=== PATIENT | male | born 1985 | race Two or more races ===

== ENCOUNTER 2021-04-06 11:13 | Inpatient (IN) | payer OTHER ==
[2021-04-06 12:04] VITALS: BMI 22.8
[2021-04-06] MEDS ORDERED: BISMUTH SUBSALICYLATE 262 MG/15 ML BTL PO PRN (12:21)
[2021-04-06] MEDS ORDERED: MAGNESIUM HYDROX 2400MG/30ML ORAL SUSPENSION 30 ML CUP PO PRN (12:21)
[2021-04-06] MEDS ORDERED: MAG HYDROX/AL HYDROX/SIMETH 30 ML UNIT-DOSE CUP PO PRN (12:21)
[2021-04-06] MEDS ORDERED: ONDANSETRON *ODT* 4 MG TABLET SL PRN (12:21)
[2021-04-06] MEDS ORDERED: MAGNESIUM CITRATE 300 ML BOTTLE PO PRN (12:21)
[2021-04-06] MEDS ORDERED: ACETAMINOPHEN 325 MG TABLET (FP) PO PRN ×2 (12:21)
[2021-04-06] MEDS ORDERED: MENTHOL/PHENOL 1 EACH UD MM PRN (12:21)
[2021-04-06] MEDS ORDERED: methaDONE HCL 10 MG TABLET (FOR DETOX USE ONLY) PO ONE (12:24)
[2021-04-06] MEDS ORDERED: diazePAM 5 MG TABLET ONE (13:03)
[2021-04-06] MEDS ORDERED: methaDONE HCL 10 MG TABLET (FOR DETOX USE ONLY) ONE (13:04)
[2021-04-06] MEDS ORDERED: METHOCARBAMOL 500 MG TABLET ONE (13:04)
[2021-04-06] MEDS: diazePAM 5 MG TABLET PO PRN (13:10)
[2021-04-06] MEDS: METHOCARBAMOL 500 MG TABLET PO PRN ×2 (13:10→22:41)
[2021-04-06] MEDS ORDERED: hydrOXYzine PAMOATE 25 MG CAPSULE (FP) PO SCH (14:00)
[2021-04-06] MEDS: diazePAM 5 MG TABLET PO SCH ×3 (14:24→22:39)
[2021-04-06] MEDS: NICOTINE 21 MG/24 HOURS TOPICAL PATCH TD SCH (14:28)
[2021-04-06] MEDS: PRENATAL VITAMINS W/ FOLIC ACID TABLET (FP) PO SCH (14:28)
[2021-04-06 17:27] LABS: HEMATOCRIT 35.5 % (35.4-49); HEMOGLOBIN 11.8 GM/dL (11.7-16.9); MCH 27.8 pg (25.7-33.7); MCHC 33.3 g/dl (32.0-35.9); MEAN CELL VOLUME 83.6 fl (80-96); MEAN PLT VOLUME 9.1 fl (7.5-11.1); PLATELET COUNT 165 10^3/uL (134-434); RBC 4.25 M/mm3 (4.00-5.60); RDW 15.1 % (11.9-15.9); WHITE BLOOD COUNT 7.5 K/mm3 (4.0-10.0)
[2021-04-06 17:34] LABS: ALBUMIN 3.4 g/dl (3.4-5.0); BLOOD UREA NITROGEN 8.4 mg/dL (7-18); CALCIUM 8.9 mg/dL (8.5-10.1)
[2021-04-06 17:36] LABS: BILIRUBIN,TOTAL 0.4 mg/dL (0.2-1); TOT PROT 7.2 g/dl (6.4-8.2)
[2021-04-06 17:38] LABS: CREATININE 0.7 mg/dL (0.55-1.3)
[2021-04-06 18:23] LABS: HIV INTERPRETATION NEGATIVE (NEGATIVE)
[2021-04-06] MEDS: MELATONIN 5 MG TABLETS PO SCH (22:39)
[2021-04-06] MEDS: THIAMINE HCL 100 MG TABLET (FP) PO SCH (22:39)
[2021-04-06] MEDS: hydrOXYzine PAMOATE 25 MG CAPSULE (FP) PO PRN (22:40)
[2021-04-07] MEDS: diazePAM 5 MG TABLET PO SCH ×4 (07:48→22:55)
[2021-04-07] MEDS ORDERED: methaDONE HCL 10 MG TABLET (FOR DETOX USE ONLY) ONE (09:18)
[2021-04-07] MEDS: PRENATAL VITAMINS W/ FOLIC ACID TABLET (FP) PO SCH (10:38)
[2021-04-07] MEDS: NICOTINE 21 MG/24 HOURS TOPICAL PATCH TD SCH (10:38)
[2021-04-07] MEDS: METHOCARBAMOL 500 MG TABLET PO PRN (10:39)
[2021-04-07] MEDS: hydrOXYzine PAMOATE 25 MG CAPSULE (FP) PO PRN ×2 (18:12→22:56)
[2021-04-07] MEDS: MELATONIN 5 MG TABLETS PO SCH (22:54)
[2021-04-07] MEDS: THIAMINE HCL 100 MG TABLET (FP) PO SCH (22:54)
[2021-04-07] MEDS: cloNIDine HCL 0.1 MG TABLET PO PRN (22:54)
[2021-04-08] MEDS: diazePAM 5 MG TABLET PO SCH ×3 (06:01→22:27)
[2021-04-08] MEDS ORDERED: methaDONE HCL 10 MG TABLET (FOR DETOX USE ONLY) PO ONE (10:00)
[2021-04-08] MEDS: IBUPROFEN 400 MG TABLET (FP) PO PRN ×2 (10:20→17:57)
[2021-04-08] MEDS: PRENATAL VITAMINS W/ FOLIC ACID TABLET (FP) PO SCH (10:22)
[2021-04-08] MEDS: NICOTINE 21 MG/24 HOURS TOPICAL PATCH TD SCH (10:22)
[2021-04-08] MEDS: METHOCARBAMOL 500 MG TABLET PO PRN ×2 (14:54→22:28)
[2021-04-08] MEDS: cloNIDine HCL 0.1 MG TABLET PO PRN ×2 (14:54→22:29)
[2021-04-08] MEDS: diazePAM 5 MG TABLET PO PRN (17:57)
[2021-04-08] MEDS: MELATONIN 5 MG TABLETS PO SCH (22:27)
[2021-04-08] MEDS: hydrOXYzine PAMOATE 25 MG CAPSULE (FP) PO PRN (22:27)
[2021-04-08] MEDS: THIAMINE HCL 100 MG TABLET (FP) PO SCH (22:28)
[2021-04-09] MEDS ORDERED: diazePAM 5 MG TABLET PO SCH (06:00)
[2021-04-09] MEDS: METHOCARBAMOL 500 MG TABLET PO PRN (06:32)
[2021-04-09] MEDS: hydrOXYzine PAMOATE 25 MG CAPSULE (FP) PO PRN (06:34)
[2021-04-09 09:10] VITALS: BP 126/62; PULSE 74; TEMP 98
[2021-04-09] MEDS ORDERED: methaDONE HCL 10 MG TABLET (FOR DETOX USE ONLY) ONE (09:27)
[2021-04-09] MEDS: NICOTINE 21 MG/24 HOURS TOPICAL PATCH TD SCH (09:28)
[2021-04-09] MEDS: PRENATAL VITAMINS W/ FOLIC ACID TABLET (FP) PO SCH (09:28)
[2021-04-09] MEDS: diazePAM 5 MG TABLET PO PRN (09:30)
[2021-04-09 10:32] LABS: SGOT/AST 31 U/L (15-37); SGPT/ALT 89 U/L (13-61)
[2021-04-10] MEDS ORDERED: diazePAM 5 MG TABLET PO ONE (06:00)
[2021-04-10] MEDS ORDERED: methaDONE HCL 10 MG TABLET (FOR DETOX USE ONLY) PO ONE (10:00)
== END 2021-04-09 10:52 | disposition left against medical advice (07) | DRG 770 ==
LOC: YASAS 11:13 → Y3N 12:36
PROVIDERS: ADMIT Allergy & Immunology; ATTEND Allergy & Immunology
PROC: HZ2ZZZZ Detoxification Services for Substance Abuse Treatment (ICD-10-PCS; principal; 2021-04-06)
DX: F11.23 Opioid dependence with withdrawal (principal); F10.230 Alcohol dependence with withdrawal, uncomplicated; F14.20 Cocaine dependence, uncomplicated; F17.220 Nicotine dependence, chewing tobacco, uncomplicated; F19.24 Other psychoactive substance dependence with psychoactive substance-induced mood disorder; F90.9 Attention-deficit hyperactivity disorder, unspecified type; Z56.0 Unemployment, unspecified; Z59.0 Homelessness
CPT/HCPCS: 36415; 80053; 84450; 84460; 85027; 86780; 87389; C9803; J0735; U0003; U0005

== ENCOUNTER 2022-05-05 19:52 | Inpatient (IN) | payer OTHER ==
[2022-05-06] MEDS ORDERED: guaiFENesin 200 MG/10 ML 10 ML UNIT-DOSE CUPS PO PRN (00:40)
[2022-05-06] MEDS ORDERED: ACETAMINOPHEN 325 MG TABLET (FP) PO PRN ×2 (00:40)
[2022-05-06] MEDS ORDERED: IBUPROFEN 400 MG TABLET (FP) PO PRN (00:40)
[2022-05-06] MEDS ORDERED: MAGNESIUM HYDROX 2400MG/30ML ORAL SUSPENSION 30 ML CUP PO PRN (00:40)
[2022-05-06] MEDS ORDERED: MAGNESIUM CITRATE 300 ML BOTTLE PO PRN (00:40)
[2022-05-06] MEDS ORDERED: PROCHLORPERAZINE MALEATE 5 MG TABLET PO PRN (00:40)
[2022-05-06] MEDS ORDERED: DICYCLOMINE HCL 10 MG CAPSULE PO PRN (00:40)
[2022-05-06] MEDS ORDERED: BISMUTH SUBSALICYLATE 524 MG/30 ML PO PRN (00:40)
[2022-05-06] MEDS ORDERED: MAG HYDROX/AL HYDROX/SIMETH 30 ML UNIT-DOSE CUP PO PRN (00:40)
[2022-05-06] MEDS ORDERED: P-EPHED 60MG/TRIPROLIDI 2.5MG TABLET PO PRN (00:40)
[2022-05-06] MEDS ORDERED: BENZOCAINE/MENTHOL (CHLORASEPTIC ) LOZENGE MM PRN (00:40)
[2022-05-06] MEDS ORDERED: LOPERAMIDE HCL 2 MG CAPSULE PO PRN (00:40)
[2022-05-06] MEDS ORDERED: NICOTINE POLACRILEX 2 MG GUM BUC PRN (00:40)
[2022-05-06 01:12] VITALS: BMI 28.0
[2022-05-06] MEDS: CEPHALEXIN MONOHYDRATE 500 MG CAPSULE (UD) PO SCH ×3 (07:30→17:53)
[2022-05-06] MEDS: PRENATAL VITAMINS W/ FOLIC ACID TABLET (FP) PO SCH (12:35)
[2022-05-06] MEDS: hydrOXYzine PAMOATE 25 MG CAPSULE (FP) PO PRN (15:11)
[2022-05-06] MEDS: METHOCARBAMOL 500 MG TABLET PO PRN (15:11)
[2022-05-07] MEDS: THIAMINE HCL 100 MG TABLET (FP) PO SCH ×2 (00:48→22:43)
[2022-05-07] MEDS: CEPHALEXIN MONOHYDRATE 500 MG CAPSULE (UD) PO SCH ×4 (01:17→18:09)
[2022-05-07] MEDS: PRENATAL VITAMINS W/ FOLIC ACID TABLET (FP) PO SCH (10:38)
[2022-05-07 10:53] LABS: HEMATOCRIT 34.4 % (35.4-49); HEMOGLOBIN 11.5 GM/dL (11.7-16.9); MCH 28.8 pg (25.7-33.7); MCHC 33.4 g/dl (32.0-35.9); MEAN CELL VOLUME 86.3 fl (80-96); MEAN PLT VOLUME 10.5 fl (7.5-11.1); PLATELET COUNT 131 10^3/uL (134-434); RBC 3.99 M/mm3 (4.00-5.60); RDW 14.3 % (11.9-15.9); WHITE BLOOD COUNT 9.3 K/mm3 (4.0-10.0)
[2022-05-07 11:06] LABS: ALBUMIN 2.8 g/dl (3.4-5.0); CALCIUM 8.7 mg/dL (8.5-10.1)
[2022-05-07 11:09] LABS: CREATININE 0.7 mg/dL (0.55-1.3)
[2022-05-07 11:10] LABS: TOT PROT 6.2 g/dl (6.4-8.2)
[2022-05-07 11:11] LABS: BILIRUBIN,TOTAL 0.3 mg/dL (0.2-1)
[2022-05-07] MEDS ORDERED: cloNIDine HCL 0.1 MG TABLET PO PRN (17:45)
[2022-05-07] MEDS ORDERED: diazePAM 5 MG TABLET PO PRN (17:45)
[2022-05-07] MEDS: diazePAM 5 MG TABLET PO SCH ×2 (18:08→22:43)
[2022-05-07] MEDS ORDERED: methaDONE HCL 10 MG TABLET (FOR DETOX USE ONLY) PO ONE (18:30)
[2022-05-07] MEDS: MELATONIN 5 MG TABLETS PO PRN (22:43)
[2022-05-08] MEDS: CEPHALEXIN MONOHYDRATE 500 MG CAPSULE (UD) PO SCH ×4 (01:04→17:58)
[2022-05-08] MEDS: diazePAM 5 MG TABLET PO SCH ×4 (06:16→22:41)
[2022-05-08] MEDS: METHOCARBAMOL 500 MG TABLET PO PRN (10:55)
[2022-05-08] MEDS: hydrOXYzine PAMOATE 25 MG CAPSULE (FP) PO PRN ×2 (10:55→22:41)
[2022-05-08] MEDS: PRENATAL VITAMINS W/ FOLIC ACID TABLET (FP) PO SCH (10:58)
[2022-05-08] MEDS: MELATONIN 5 MG TABLETS PO PRN (22:41)
[2022-05-08] MEDS: THIAMINE HCL 100 MG TABLET (FP) PO SCH (22:41)
[2022-05-09] MEDS: diazePAM 5 MG TABLET PO SCH ×3 (05:24→22:07)
[2022-05-09] MEDS: IBUPROFEN 600 MG TABLET (FP) PO PRN (07:07)
[2022-05-09] MEDS: METHOCARBAMOL 500 MG TABLET PO PRN ×2 (07:08→22:06)
[2022-05-09] MEDS ORDERED: methaDONE HCL 10 MG TABLET (FOR DETOX USE ONLY) PO ONE (10:00)
[2022-05-09] MEDS: PRENATAL VITAMINS W/ FOLIC ACID TABLET (FP) PO SCH (10:40)
[2022-05-09] MEDS: hydrOXYzine PAMOATE 25 MG CAPSULE (FP) PO PRN ×2 (18:21→22:06)
[2022-05-09] MEDS: MELATONIN 5 MG TABLETS PO PRN (22:06)
[2022-05-09] MEDS: THIAMINE HCL 100 MG TABLET (FP) PO SCH (22:06)
[2022-05-10] MEDS: diazePAM 5 MG TABLET PO SCH ×2 (06:40→17:55)
[2022-05-10] MEDS: METHOCARBAMOL 500 MG TABLET PO PRN ×2 (10:33→22:26)
[2022-05-10] MEDS: hydrOXYzine PAMOATE 25 MG CAPSULE (FP) PO PRN ×2 (10:34→22:26)
[2022-05-10] MEDS: PRENATAL VITAMINS W/ FOLIC ACID TABLET (FP) PO SCH (10:34)
[2022-05-10] MEDS: MELATONIN 5 MG TABLETS PO PRN (22:24)
[2022-05-10] MEDS: THIAMINE HCL 100 MG TABLET (FP) PO SCH (22:24)
[2022-05-11] MEDS ORDERED: MELATONIN 5 MG TABLETS PO ONE (00:33)
[2022-05-11] MEDS ORDERED: diazePAM 5 MG TABLET PO ONE (06:00)
[2022-05-11] MEDS: hydrOXYzine PAMOATE 25 MG CAPSULE (FP) PO PRN ×2 (06:50→22:06)
[2022-05-11] MEDS ORDERED: methaDONE HCL 10 MG TABLET (FOR DETOX USE ONLY) PO ONE (10:00)
[2022-05-11] MEDS: PRENATAL VITAMINS W/ FOLIC ACID TABLET (FP) PO SCH (10:27)
[2022-05-11] MEDS: IBUPROFEN 600 MG TABLET (FP) PO PRN (13:02)
[2022-05-11 18:01] VITALS: RESP 18
[2022-05-11] MEDS ORDERED: SUVOREXANT 15 MG TABLET PO PRN (22:00)
[2022-05-11] MEDS ORDERED: SUVOREXANT 10 MG TABLET PO PRN (22:00)
[2022-05-11] MEDS: THIAMINE HCL 100 MG TABLET (FP) PO SCH (22:06)
[2022-05-11] MEDS: METHOCARBAMOL 500 MG TABLET PO PRN (22:06)
[2022-05-12 08:56] VITALS: BP 127/78; PULSE 69; TEMP 98.1
[2022-05-12] MEDS: PRENATAL VITAMINS W/ FOLIC ACID TABLET (FP) PO SCH (09:39)
== END 2022-05-12 11:25 | disposition other institution (70) | DRG 773 ==
LOC: YASAS 19:52 → Y3N 05-06 02:22
PROVIDERS: ADMIT Allergy & Immunology; ATTEND Allergy & Immunology
PROC: HZ2ZZZZ Detoxification Services for Substance Abuse Treatment (ICD-10-PCS; principal; 2022-05-06)
DX: F11.23 Opioid dependence with withdrawal (principal); F10.230 Alcohol dependence with withdrawal, uncomplicated; F14.20 Cocaine dependence, uncomplicated; F12.10 Cannabis abuse, uncomplicated; F17.210 Nicotine dependence, cigarettes, uncomplicated; F19.282 Other psychoactive substance dependence with psychoactive substance-induced sleep disorder; F19.24 Other psychoactive substance dependence with psychoactive substance-induced mood disorder; Z86.59 Personal history of other mental and behavioral disorders; Z86.61 Personal history of infections of the central nervous system; Z56.0 Unemployment, unspecified; Z59.00 Homelessness unspecified
CPT/HCPCS: 36415; 80053; 85027; 86780; 87811; 93005; 93010; C9803-CS; J0735; U0003; U0005